=== PATIENT | male | born 1995 | race Caucasian/White ===

== ENCOUNTER 2018-03-23 09:46 | Observation (INO) ==
[2018-03-23] MEDS ORDERED: Nystatin 100,000 UNITS/GM Powder 15 GM Bottle TOPICAL ONE (10:25)
--- NOTE | 2018-03-23 11:29 | ED ---
HPI General Chief complaint: Headache Stated complaint: Flu Symptoms Time Seen by Provider: 03/23/18 10:23 Source: patient and EMS Mode of arrival: EMS Limitations: no limitations History of Present Illness HPI narrative: Patient is a 22-year-old male presenting to emerge from for evaluation of cold and flulike symptoms. Patient states it started Thursday night. He reports 2 episodes of nausea and vomiting last night as well as 2 episodes of diarrhea last night. He reports generalized body aches, a productive cough with green sputum, runny nose, a dull headache. Patient states he was discharged from [facility] on Thursday afternoon after presenting there for evaluation of ear pain. Patient denies any chest pain, shortness of breath, abdominal pain. Patient states that he is followed by Dr. Hubbard but has not been able to follow-up with them because he has not come out to his home to evaluate him. He reports a history of sleep apnea and hypothyroidism, he is not compliant with thyroid medication. Onset (ago): day(s) Related Data Home Medications Medication Instructions Recorded Confirmed No Known Home Medications 03/23/18 03/23/18 Previous Rx's Medication Instructions Recorded azithromycin See Label Instructions .ROUTE 03/23/18 .COMPLEX #6 tab Allergies Allergy/AdvReac Type Severity Reaction Status Date / Time guaifenesin Allergy Intermediate HIVES Unverified 02/24/17 18:41 QUANFANCINE Allergy Mild WELTS Uncoded 04/25/09 15:39 Review of Systems ROS: all other systems reviewed are negative [facility] Medical History Medical History Hypothyroidism (Chronic) Obesity (Chronic) Sleep apnea (Chronic) Social History Social History Substance History: No History of Abuse Second Hand Smoke Exposure: No Smoking Status: Unknown if ever smoked How Often Do You Have a Drink Containing Alcohol: Unable to Obtain Recent Travel in [facility] within the Last 8 Weeks: No Recent Out of Country Travel within the Last 8 Weeks: No Immunization History Tetanus Immunization: Unable to Assess Hx Influenza Vaccine This Season: Unable to Assess Exam Narrative Exam Narrative: GENERAL: Morbidly obese, alert male. Presenting in no acute distress. SKIN: Focused skin assessment warm/dry. Well demarcated areas of erythema under breasts bilaterally and under pannus. HEAD: Atraumatic. Normocephalic. EYES: Pupils equal and round. No scleral icterus. No injection or drainage. ENT: No nasal bleeding or discharge. Mucous membranes pink and moist. NECK: Trachea midline. No JVD. CARDIOVASCULAR: Regular rate and rhythm. No murmur appreciated. RESPIRATORY: No accessory muscle use. Clear to auscultation. Breath sounds equal bilaterally. GASTROINTESTINAL: Abdomen soft, non-tender, nondistended. Hepatic and splenic margins not palpable. MUSCULOSKELETAL: No obvious deformities. No clubbing. No cyanosis. No edema. NEUROLOGICAL: Awake and alert. No obvious cranial nerve deficits. Motor grossly within normal limits. Normal speech. PSYCHIATRIC: Appropriate mood and affect; insight and judgment normal. Course Initial Documented Vital Signs Temperature 98.1 F 03/23/18 10:27 Pulse Rate 94 H 03/23/18 10:27 Respiratory Rate 20 03/23/18 10:27 Blood Pressure 143/88 H 03/23/18 10:27 Pulse Oximetry 96 03/23/18 10:27 Last Documented Vital Signs Temperature 98.1 F 03/23/18 10:35 Pulse Rate 90 03/23/18 10:35 Respiratory Rate 20 03/23/18 10:35 Blood Pressure 132/80 03/23/18 10:35 Pulse Oximetry 95 03/23/18 10:35 Medical Decision Making [facility] Narrative Medical decision making narrative: Patient is a morbidly obese 22-year-old male presenting for evaluation of cold and flulike symptoms. Patient's vital signs are stable, he is well oxygenated on room air. Labs and imaging ordered and pending. Thyroid function is within normal limits despite patient being noncompliant with levothyroxine. CBC with white blood cell count 12.6 with left shift. Chemistry reviewed, no acute findings identified. Chest x-ray shows no pneumothorax, minimal parenchymal changes in the right lung base. Case management was consulted to transport patient back to his home. Patient will be started on azithromycin. Patient was encouraged to follow-up with Dr. Hubbard. Patient was further encouraged to maintain a heart healthy diet, he was encouraged to engage in physical activity as much as possible to promote weight loss. He was encouraged to return to emergency department for any new or worsening symptoms. Patient verbalized understanding of instructions. Patient stable for discharge Attempted to discharge patient. Patient has nowhere to go patient and his mother were evicted from their apartment. Case management was consulted, the process was started for a skilled facility however nothing is available at this time. Patient is a difficult placement due to his size. Patient would likely benefit from placement in a skilled facility. [facility] paged for admission. Medical Screen Exam Complete: Yes Emergency Medical Condition: Yes Differential Diagnosis Differential Diagnosis: Kristin vs metabolic abnormality vs influenza vs common cold vs pneumonia vs other Lab Data Result diagrams: 03/23/18 11:00 03/23/18 11:00 Lab Results 03/23/18 03/23/18 Range/Units 11:00 11:00 WBC 12.6 H (4.0-11.0) th/mm3 RBC 5.44 (4.50-5.90) mil/mm3 Hgb 14.4 (13.0-17.0) gm/dL Hct 45.2 (39.0-51.0) % MCV 83.1 (80.0-100.0) fL MCH 26.6 L (27.0-34.0) pg MCHC 31.9 L (32.0-36.0) % RDW 15.6 (11.6-17.2) % Plt Count 95 L (150-450) th/mm3 MPV 10.0 (7.0-11.0) fL Prelim Diff (Auto) Slide review pending Neut % (Auto) 77.9 H (16.0-70.0) % Lymph % (Auto) 15.0 (9.0-44.0) % [place] % (Auto) 4.7 (0.0-8.0) % Eos % (Auto) 2.0 (0.0-4.0) % Baso % (Auto) 0.4 (0.0-2.0) % Neut # (Auto) 9.8 H (1.8-7.7) th/mm3 Lymph # (Auto) 1.9 (1.0-4.8) th/mm3 [place] # (Auto) 0.6 (0.0-0.9) th/mm3 Eos # (Auto) 0.3 (0.0-0.4) th/mm3 Baso # (Auto) 0.1 (0.0-0.2) th/mm3 WBC Differential . Diff Scan Auto diff confirmed Differential Comment . Platelet Estimate Low L (Normal) Platelet Morphology Enlarged H (Normal) Sodium 139 (136-145) meq/L Potassium 4.3 (3.5-5.1) meq/L Chloride 102 (98-107) meq/L Carbon Dioxide 29.8 (21.0-32.0) meq/L Anion Gap 7 (5-15) meq/L BUN 5 L (7-18) mg/dL Creatinine 0.52 L (0.60-1.30) mg/dL Estimated GFR Greater than 89 (>89) mL/min Random Glucose 87 (74-106) mg/dL Calcium 8.3 L (8.5-10.1) mg/dL Total Bilirubin 1.1 H (0.2-1.0) mg/dL AST 33 (15-37) U/L ALT 52 (12-78) U/L Alkaline Phosphatase 62 (45-117) U/L Total Protein 8.3 H (6.4-8.2) g/dL Albumin 2.9 L (3.4-5.0) g/dL Lipase 39 L (73-393) U/L TSH 2.360 (0.358-3.740) uIU/mL Free T4 1.34 (0.76-1.46) ng/dL Imaging Data Radiologist's impression: Chest X-Ray 03/23/18 10:24 CONCLUSION: No pneumothorax. Elevation left hemidiaphragm. Discharge Plan Discharge Disposition Patient Disposition: 01 Discharge Home Discharge Condition Condition: Good Discharge Details Diagnosis: Pneumonia, Morbid obesity, Impaired mobility and ADLs Physicians Team ED Provider: Sameera Shaffer ED Midlevel Provider: Marisol Wiley Primary Care Provider: Arnaud Hubbard Rxs /Orders / Referrals /Forms Prescriptions: New azithromycin 250 mg tablet See Label Instructions .ROUTE .COMPLEX Qty: 6 RF: 0 No Action No Known Home Medications RF: 0 Referrals: Arnaud Hubbard MD [Primary Care Provider] - 3 Days Discharge Instructions Patient Printed Instructions: Acute Bronchitis (ED) Additional Instructions: Follow-up with Dr. Hubbard Take antibiotics as directed Return to emergency department for any new or worsening symptoms Discharge Interventions Interventions: ED Discharge Assessment Last Done: 03/23/18 13:45 Discharge Planning - Case Management Last Done: 03/23/18 16:11 Status ED Status: Admitted Patient
[2018-03-23 11:37] LABS: Baso # (Auto) 0.1 th/mm3 (0.0-0.2); Baso % (Auto) 0.4 % (0.0-2.0); Eos # (Auto) 0.3 th/mm3 (0.0-0.4); Hematocrit 45.2 % (39.0-51.0); Hemoglobin 14.4 gm/dL (13.0-17.0); Lymph # (Auto) 1.9 th/mm3 (1.0-4.8); Mean Corpuscular HGB Conc 31.9 % (32.0-36.0); Mean Corpuscular Hemoglobin 26.6 pg (27.0-34.0); Mean Corpuscular Volume 83.1 fL (80.0-100.0); Mono # (Auto) 0.6 th/mm3 (0.0-0.9); Mono % (Auto) 4.7 % (0.0-8.0); Neut # (Auto) 9.8 th/mm3 (1.8-7.7); Neut % (Auto) 77.9 % (16.0-70.0); Platelet Count 95 th/mm3 (150-450); Red Blood Count 5.44 mil/mm3 (4.50-5.90); Red Cell Distribution Width 15.6 % (11.6-17.2); White Blood Count 12.6 th/mm3 (4.0-11.0)
[2018-03-23 12:20] LABS: Alanine Aminotransferase 52 U/L (12-78); Albumin 2.9 g/dL (3.4-5.0); Anion Gap 7 meq/L (5-15); Aspartate Aminotransferase 33 U/L (15-37); Blood Urea Nitrogen 5 mg/dL (7-18); Calcium 8.3 mg/dL (8.5-10.1); Carbon Dioxide 29.8 meq/L (21.0-32.0); Chloride 102 meq/L (98-107); Glomerular Filtration Rate Greater Than 89 mL/min (>89); Glucose,Random 87 mg/dL (74-106); Lipase 39 U/L (73-393); Potassium 4.3 meq/L (3.5-5.1); Sodium 139 meq/L (136-145)
[2018-03-23 12:23] LABS: Alkaline Phosphatase 62 U/L (45-117); Free T4 (Free Thyroxine) 1.34 ng/dL (0.76-1.46); Total Protein 8.3 g/dL (6.4-8.2)
--- NOTE | 2018-03-23 13:28 | XR ---
EXAM DATE: 03/23/2018 11:36 AM EDT AGE/SEX: 22 years / Male INDICATIONS: Cough and congestion. CLINICAL DATA: This is the patient's initial encounter. Patient reports that signs and symptoms have been present for 1 week and indicates a pain score of 5/10. MEDICAL/SURGICAL HISTORY: None. None. COMPARISON: [facility], CHEST PA & LAT, 07/23/2012. . FINDINGS: There is no pneumothorax following bronchoscopy. There is mild elevation of the left hemidiaphragm. M inimal parental changes are present in right base. CONCLUSION: No pneumothorax. Elevation left hemidiaphragm. Electronically signed by: Collin Raya MD 03/23/2018 1:27 PM EDT
[2018-03-23] MEDS ORDERED: Azithromycin 250 MG Tablet PO ONE (17:30)
[2018-03-23] MEDS ORDERED: Acetaminophen 325 MG Tablet PO PRN (17:53)
[2018-03-23] MEDS ORDERED: Bisacodyl 10 MG Supp RECTAL PRN (17:53)
--- NOTE | 2018-03-23 18:11 | P.HP ---
History of Present Illness Primary Care Physician: Arnaud Hubbard MD Chief Complaint: placement issues History of Present Illness: Patient is a 22-year-old male presenting to emerge from for evaluation of cold and flulike symptoms. Patient states it started Thursday night. He reports 2 episodes of nausea and vomiting last night as well as 2 episodes of diarrhea last night. He reports generalized body aches, a productive cough with green sputum, runny nose, a dull headache. Patient states he was discharged from [facility] on Thursday afternoon after presenting there for evaluation of ear pain. Patient denies any chest pain, shortness of breath, abdominal pain. Patient states that he is followed by Dr. Hubbard but has not been able to follow- up with them because he has not come out to his home to evaluate him. He reports a history of sleep apnea and hypothyroidism, he is not compliant with thyroid medication. 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 - Medical History Medical History: Medical History (Last Reviewed 03/23/18 @ 18:02 by Marie Calvillo MD) Hypothyroidism Obesity Sleep apnea - Surgical History Surgical History: Surgical History (Last Updated 03/23/18 @ 18:02 by Marie Calvillo MD) Surgical screw in right hand (Acute) - Tobacco History Second Hand Smoke Exposure: No Tobacco Use In Past 30 Days: No Smoking Status: Unknown if ever smoked - Alcohol History How Often Do You Have a Drink Containing Alcohol: Unable to Obtain - Substance Use History Substance History: No History of Abuse - Travel History Recent Travel in the [place] Within the Last 8 Weeks: No Recent Travel Out of the Country Within the Last 8 Weeks: No - Immunization History Tetanus Immunization: Unable to Assess Hx Influenza Vaccine This Season: Unable to Assess Medications and Allergies Active Medications: Active Medications Acetaminophen (Tylenol) 650 mg PO Q4H PRN PRN Reason: Temp > 100.4 Al Hydroxide/Mg Hydroxide (Milk Of Magnesia Liq) 30 ml PO Q12H PRN PRN Reason: Mild Constipation Azithromycin (Zithromax) 250 mg PO DAILY BRAYAN Stop: 03/28/18 08:59 Bisacodyl (Dulcolax Supp) 10 mg RECTAL DAILY PRN PRN Reason: SEVERE CONSITIPATION Enoxaparin Sodium (Lovenox Inj) 40 mg SQ Q24H BRAYAN Lactulose (Lactulose Liq) 30 ml PO DAILY PRN PRN Reason: SEVERE CONSITIPATION Nystatin (Mycostatin Cream) 1 applicatio TOPICAL BID BRAYAN Ondansetron HCl (Zofran Inj) 4 mg IV.PUSH Q6H PRN PRN Reason: NAUSEA OR VOMITING Senna/Docusate Sodium (Katerina-Colace) 1 tab PO BID BRAYAN Sennosides (Senokot) 17.2 mg PO Q12H PRN PRN Reason: Moderate Constipation Sodium Chloride (Ns Flush) 2 ml IV.FLUSH PRN PRN PRN Reason: FLUSH AFTER USING IV ACCESS Allergies Allergy/AdvReac Type Severity Reaction Status Date / Time guaifenesin Allergy Intermediate HIVES Unverified 02/24/17 18:41 QUANFANCINE Allergy Mild WELTS Uncoded 04/25/09 15:39 Home Medications Medication Instructions Recorded Confirmed Type No Known Home Medications 03/23/18 03/23/18 History Exam Vital signs: Vital Signs 03/23/18 10:27 03/23/18 10:35 Temperature 98.1 F 98.1 F Pulse Rate 94 H 90 Respiratory Rate 20 20 Blood Pressure 143/88 H 132/80 Pulse Oximetry 96 95 Intake & Output 03/22/18 03/23/18 03/23/18 18:59 06:59 18:59 Weight 650 kg Narrative: GENERAL: 22-year-old male morbidly obese. SKIN: Warm and dry. Cutaneous candidiasis. HEAD: Atraumatic. Normocephalic. EYES: Pupils equal and round. No scleral icterus. No injection or drainage. ENT: No nasal bleeding or discharge. Mucous membranes pink and moist. NECK: Trachea midline. No JVD. CARDIOVASCULAR: Regular rate and rhythm. RESPIRATORY: No accessory muscle use. Clear to auscultation. Breath sounds equal bilaterally. GASTROINTESTINAL: Abdomen soft, morbidly obese non-tender, nondistended. Hepatic and splenic margins not palpable. MUSCULOSKELETAL: Extremities without clubbing, cyanosis, or edema. No obvious deformities. NEUROLOGICAL: Awake and alert. No obvious cranial nerve deficits. Motor grossly within normal limits. Normal speech. PSYCHIATRIC: Appropriate mood and affect; insight and judgment normal. Results - Labs CBC & Chem 7: 03/23/18 11:00 03/23/18 11:00 Labs: Laboratory Results - last 24 hr 03/23/18 03/23/18 11:00 11:00 WBC 12.6 H RBC 5.44 Hgb 14.4 Hct 45.2 MCV 83.1 MCH 26.6 L MCHC 31.9 L RDW 15.6 Plt Count 95 L MPV 10.0 Prelim Diff (Auto) Slide review pending Neut % (Auto) 77.9 H Lymph % (Auto) 15.0 [place] % (Auto) 4.7 Eos % (Auto) 2.0 Baso % (Auto) 0.4 Neut # (Auto) 9.8 H Lymph # (Auto) 1.9 [place] # (Auto) 0.6 Eos # (Auto) 0.3 Baso # (Auto) 0.1 WBC Differential . Diff Scan Auto diff confirmed Differential Comment . Platelet Estimate Low L Platelet Morphology Enlarged H Sodium 139 Potassium 4.3 Chloride 102 Carbon Dioxide 29.8 Anion Gap 7 BUN 5 L Creatinine 0.52 L Estimated GFR Greater than 89 Random Glucose 87 Calcium 8.3 L Total Bilirubin 1.1 H AST 33 ALT 52 Alkaline Phosphatase 62 Total Protein 8.3 H Albumin 2.9 L Lipase 39 L TSH 2.360 Free T4 1.34 - Imaging Impressions Chest X-Ray 03/23/18 10:24 CONCLUSION: No pneumothorax. Elevation left hemidiaphragm. Caprini VTE Risk Assessment Caprini VTE Risk Assessment: Moderate/High Risk (score >= 2) Caprini Risk Assessment Model: Point Value = 1 Point Value = 2 Point Value = 3 Point Value = 5 Age 41-60 Minor surgery BMI > 25 kg/m2 Swollen legs Varicose veins or History of unexplained or recurrent spontaneous Oral contraceptives or hormone replacement Sepsis (< 1 month) Serious lung disease, including pneumonia (< 1 month) Abnormal pulmonary function Acute myocardial infarction Congestive heart failure (< 1 month) History of inflammatory bowel disease Medical patient at bed rest Age 61-74 Arthroscopic surgery Major open surgery (> 45 min) Laparoscopic surgery (> 45 min) Malignancy Confined to bed (> 72 hours) Immobilizing plaster cast Central venous access Age >= 75 History of VTE Family history of VTE Factor V Leiden Prothrombin [id number] Lupus anticoagulant Anticardiolipin antibodies Elevated serum homocysteine Heparin-induced thrombocytopenia Other congenital or acquired thrombophilia Stroke (< 1 month) Elective arthroplasty Hip, pelvis, or leg fracture Acute spinal cord injury (< 1 month) Prophylaxis Regimen: Total Risk Factor Score Risk Level Prophylaxis Regimen 0-1 Low Early ambulation 2 Moderate Order ONE of the following: *Sequential Compression Device (SCD) *Heparin 5000 units SQ BID 3-4 Higher Order ONE of the following medications: *Heparin 5000 units SQ TID *Enoxaparin/Lovenox 40 mg SQ daily (WT < 150 kg, CrCl > 30 mL/min) *Enoxaparin/Lovenox 30 mg SQ daily (WT < 150 kg, CrCl > 10-29 mL/min) *Enoxaparin/Lovenox 30 mg SQ BID (WT < 150 kg, CrCl > 30 mL/min) AND/OR *Sequential Compression Device (SCD) 5 or more Highest Order ONE of the following medications: *Heparin 5000 units SQ TID (Preferred with Epidurals) *Enoxaparin/Lovenox 40 mg SQ daily (WT < 150 kg, CrCl > 30 mL/min) *Enoxaparin/Lovenox 30 mg SQ daily (WT < 150 kg, CrCl > 10-29 mL/min) *Enoxaparin/Lovenox 30 mg SQ BID (WT < 150 kg, CrCl > 30 mL/min) AND *Sequential Compression Device (SCD) Assessment and Plan - Plan 23-year-old male morbidly obese with placement issues. Discussed with case management says patient cannot be admitted to any long-term facility. For case management treatment and also per patient mother said he gave her will have a motel by Thursday. Morbid obesity. Bed bound. Patient with BMI of 194 and 650 kg Needs placement however per case management due to weight long-term facility will not take patient. Mother is a caregiver and the patient was living at home however has eviction and no place to stay. Per patient in case management mother will be able to have a motel by Thursday Dietary changes. To follow-up with dietitian as outpatient. To consider bariatric surgery, follow-up as outpatient Cutaneous candidiasis. Start nystatin Bronchitis start azithromycin p.o. Monitor oxygen. Patient says he used to have sleep apnea however does not have any more the CPAP. Restart home medications as appropriate DVT ppx lovenox Code Status: Full code Discussed Condition With: Patient, nurse
[2018-03-23] MEDS: Enoxaparin Inj 40 MG/0.4 ML Syringe SQ SCH (21:42)
[2018-03-23] MEDS: Senna/Docusate Sodium 8.6/50 MG Tablet PO SCH (21:43)
[2018-03-23 23:37] LABS: Bilirubin,Urine Negative (Negative); Clarity,Urine Clear (Clear); Color,Urine Yellow (Yellw/Straw); Glucose,Urine (UA) Negative (Negative); Leukocyte Esterase,Urine Negative (Negative); Mucus,Urine Few /lpf (Occasional); Nitrite,Urine Negative (Negative); Specific Gravity,Urine 1.019 (1.002-1.035); Squamous Epithelial Cell,Urine 1 /hpf (0-5)
[2018-03-24] MEDS: Nystatin 100,000 UNITS/GM Powder 15 GM Bottle TOPICAL SCH ×5 (01:44→22:24)
[2018-03-24] MEDS: Azithromycin 250 MG Tablet PO SCH (09:07)
[2018-03-24] MEDS: Senna/Docusate Sodium 8.6/50 MG Tablet PO SCH ×2 (09:07→22:19)
[2018-03-24 16:39] LABS: Baso # (Auto) 0.1 th/mm3 (0.0-0.2); Baso % (Auto) 0.7 % (0.0-2.0); Eos # (Auto) 0.3 th/mm3 (0.0-0.4); Hematocrit 42.2 % (39.0-51.0); Hemoglobin 13.9 gm/dL (13.0-17.0); Lymph # (Auto) 1.9 th/mm3 (1.0-4.8); Lymph % (Auto) 18.5 % (9.0-44.0); Mean Corpuscular Hemoglobin 26.9 pg (27.0-34.0); Mean Corpuscular Volume 81.6 fL (80.0-100.0); Mean Platelet Volume 9.8 fL (7.0-11.0); Mono # (Auto) 0.5 th/mm3 (0.0-0.9); Mono % (Auto) 5.2 % (0.0-8.0); Neut # (Auto) 7.5 th/mm3 (1.8-7.7); Neut % (Auto) 72.6 % (16.0-70.0); Platelet Count 82 th/mm3 (150-450); Red Blood Count 5.18 mil/mm3 (4.50-5.90); Red Cell Distribution Width 14.9 % (11.6-17.2); White Blood Count 10.3 th/mm3 (4.0-11.0)
[2018-03-24 17:02] LABS: Alanine Aminotransferase 47 U/L (12-78); Anion Gap 7 meq/L (5-15); Aspartate Aminotransferase 28 U/L (15-37); Blood Urea Nitrogen 5 mg/dL (7-18); Calcium 8.9 mg/dL (8.5-10.1); Carbon Dioxide 30.7 meq/L (21.0-32.0); Chloride 101 meq/L (98-107); Glomerular Filtration Rate Greater Than 89 mL/min (>89); Glucose,Random 91 mg/dL (74-106); Sodium 139 meq/L (136-145)
[2018-03-24 17:05] LABS: Alkaline Phosphatase 58 U/L (45-117); Total Protein 8.1 g/dL (6.4-8.2)
--- NOTE | 2018-03-24 17:17 | P.PN ---
Subjective Interval history: Patient is seen sitting up in bed. He is unclothed and mother is scrubbing his feet. Patient denies chest pain. Does complain of some shortness of breath and wheezing. Still has nasal congestion and is coughing up some phlegm. He does report that he feels better now that he has taken part of the Z-Sinan. No nausea or vomiting. No fever or chills. Physical Exam Vital signs: Vital Signs 03/23/18 20:00 03/23/18 23:32 03/24/18 04:00 Temperature 98.5 F 98.0 F 98.2 F Pulse Rate 100 H 94 H 111 H Respiratory Rate 20 20 Blood Pressure 143/63 H 113/73 133/93 H Pulse Oximetry 95 95 100 03/24/18 08:00 03/24/18 12:00 Temperature 98.1 F 98.7 F Pulse Rate 96 H 98 H Respiratory Rate 16 12 Blood Pressure 157/80 H 110/79 Pulse Oximetry 91 L 97 Intake & Output 03/23/18 03/24/18 03/24/18 18:59 06:59 18:59 Intake Total 480 / 480 Balance 480 / 480 Weight 650 kg 294.835 kg Intake: Oral 480 / 480 Other: # Voids 2 Date of Last Bowel Movement 03/24/18 Weight On Admission 294.835 kg Narrative: GENERAL: 22-year-old male morbidly obese. SKIN: Warm and dry. Cutaneous candidiasis. HEAD: Atraumatic. Normocephalic. NECK: Trachea midline. No JVD. CARDIOVASCULAR: Regular rate and rhythm. RESPIRATORY: No accessory muscle use. Clear to auscultation. Breath sounds equal bilaterally. GASTROINTESTINAL: Abdomen soft, morbidly obese non-tender, nondistended. MUSCULOSKELETAL: Extremities without clubbing, cyanosis, or edema. No obvious deformities. NEUROLOGICAL: Awake and alert. No obvious cranial nerve deficits. Motor grossly within normal limits. Normal speech. PSYCHIATRIC: Appropriate mood and affect; insight and judgment normal. Results - Labs CBC & Chem 7: 03/24/18 16:26 03/24/18 16:26 Laboratory Results - last 24 hr 03/23/18 03/24/18 03/24/18 23:16 16:26 16:26 WBC 10.3 RBC 5.18 Hgb 13.9 Hct 42.2 MCV 81.6 MCH 26.9 L MCHC 33.0 RDW 14.9 Plt Count 82 L MPV 9.8 Prelim Diff (Auto) Slide review pending Neut % (Auto) 72.6 H Lymph % (Auto) 18.5 [place] % (Auto) 5.2 Eos % (Auto) 3.0 Baso % (Auto) 0.7 Neut # (Auto) 7.5 Lymph # (Auto) 1.9 [place] # (Auto) 0.5 Eos # (Auto) 0.3 Baso # (Auto) 0.1 Differential Comment . Sodium 139 Potassium 4.0 Chloride 101 Carbon Dioxide 30.7 Anion Gap 7 BUN 5 L Creatinine 0.48 L Estimated GFR Greater than 89 Random Glucose 91 Calcium 8.9 Total Bilirubin 1.6 H AST 28 ALT 47 Alkaline Phosphatase 58 Total Protein 8.1 Albumin 3.0 L Urine Color Yellow Urine Clarity Clear Urine pH 7.0 Ur Specific [place] 1.019 Urine Protein Negative Urine Glucose (UA) Negative Urine Ketones Negative Urine Occult Blood Negative Urine Nitrate Negative Urine Bilirubin Negative Urine Urobilinogen 2.0 H Ur Leukocyte Esterase Negative Urine RBC Less than 1 Urine WBC 4 Ur Squamous Epith Cells 1 Urine Mucus Few H Micro UA Comment Culture not ind Ur Microscopic Review Not Reportable Urine Culture Comments Culture not ind Assessment and Plan - Plan 23-year-old male morbidly obese with placement issues. Discussed with case management says patient cannot be admitted to any [facility] facility. For case management treatment and also per patient mother said he gave her will have a motel by Thursday. Bronchitis start azithromycin p.o. Morbid obesity. Bed bound. Patient with BMI of 194 and 294 kg Needs placement however per case management due to weight [facility] facility will not take patient. Mother is a caregiver and the patient was living at home however has eviction and no place to stay. Per patient in case management mother will be able to have a motel by Thursday Dietary changes. To follow-up with dietitian as outpatient. To consider bariatric surgery, follow-up as outpatient Cutaneous candidiasis. Start nystatin Monitor oxygen. Patient says he used to have sleep apnea however does not have any more the CPAP. Restart home medications as appropriate DVT ppx lovenox
[2018-03-24 17:36] LABS: RBC Morphology Normal (Normal)
[2018-03-24] MEDS: Enoxaparin Inj 40 MG/0.4 ML Syringe SQ SCH (22:24)
[2018-03-25] MEDS: Senna/Docusate Sodium 8.6/50 MG Tablet PO SCH ×2 (09:04→23:01)
[2018-03-25] MEDS: Azithromycin 250 MG Tablet PO SCH (09:06)
[2018-03-25] MEDS: Nystatin 100,000 UNITS/GM Powder 15 GM Bottle TOPICAL SCH ×4 (10:04→23:00)
--- NOTE | 2018-03-25 17:06 | P.PN ---
Subjective Interval history: Patient is seen lying in bed. He tells me that he continues to feel better. No new complaints. No new shortness of breath or chest pain. No nausea vomiting or diarrhea. He noted to be somewhat verbally abusive to his mother who is at bedside. Physical Exam Vital signs: Vital Signs 03/24/18 20:12 03/24/18 21:52 03/25/18 03:27 Temperature 98.0 F Pulse Rate 75 85 Respiratory Rate 16 16 Blood Pressure 129/63 Pulse Oximetry 96 95 03/25/18 07:43 03/25/18 11:58 03/25/18 15:40 Temperature 98.5 F 98.8 F Pulse Rate 94 H 97 H 96 H Respiratory Rate 20 20 18 Blood Pressure 121/82 103/64 141/63 H Pulse Oximetry 90 L 93 L 95 Intake & Output 03/24/18 03/25/18 03/25/18 18:59 06:59 18:59 Intake Total 480 / 480 Balance 480 / 480 Intake: Oral 480 / 480 Other: # Voids 2 Date of Last Bowel Movement 03/24/18 03/24/18 03/24/18 # Bowel Movements 2 Narrative: GENERAL: 22-year-old male morbidly obese. SKIN: Warm and dry. Cutaneous candidiasis. HEAD: Atraumatic. Normocephalic. NECK: Trachea midline. No JVD. CARDIOVASCULAR: Regular rate and rhythm. RESPIRATORY: No accessory muscle use. Clear to auscultation. Breath sounds equal bilaterally. GASTROINTESTINAL: Abdomen soft, morbidly obese non-tender, nondistended. MUSCULOSKELETAL: Extremities without clubbing, cyanosis, or edema. No obvious deformities. NEUROLOGICAL: Awake and alert. No obvious cranial nerve deficits. Motor grossly within normal limits. Normal speech. PSYCHIATRIC: Appropriate mood and affect; insight and judgment normal. Results - Labs CBC & Chem 7: 03/24/18 16:26 03/24/18 16:26 Laboratory Results - last 24 hr 03/24/18 03/24/18 16:26 16:26 WBC Differential . Diff Scan Auto diff confirmed Platelet Estimate Low L Platelet Morphology Enlarged H RBC Morphology Normal Total Bilirubin 1.6 H Alkaline Phosphatase 58 Total Protein 8.1 Assessment and Plan - Plan 23-year-old male morbidly obese with placement issues. Discussed with case management says patient cannot be admitted to any long term facility. For case management treatment and also per patient mother said he gave her will have a motel by Thursday. Bronchitis -start azithromycin p.o. Morbid obesity. Bed bound. Patient with BMI of 194 and 294 kg -Needs placement however per case management due to weight long term facility will not take patient. Mother is a caregiver and the patient was living at home however has eviction and no place to stay. Per patient in case management mother will be able to have a motel by Thursday Dietary changes. -To follow-up with dietitian as outpatient. -To consider bariatric surgery, follow-up as outpatient Cutaneous candidiasis. -Start nystatin Monitor oxygen. -Patient says he used to have sleep apnea however does not have any more the CPAP. -o2 at night and when sleeping Restart home medications as appropriate DVT ppx lovenox
[2018-03-25] MEDS: Enoxaparin Inj 40 MG/0.4 ML Syringe SQ SCH (21:59)
[2018-03-26] MEDS: Nystatin 100,000 UNITS/GM Powder 15 GM Bottle TOPICAL SCH ×4 (08:47→20:26)
[2018-03-26] MEDS: Azithromycin 250 MG Tablet PO SCH (08:47)
[2018-03-26] MEDS: Senna/Docusate Sodium 8.6/50 MG Tablet PO SCH ×2 (08:48→23:07)
--- NOTE | 2018-03-26 16:17 | P.PN ---
Subjective Interval history: Patient is lying in bed. No new complaints of shortness of breath or congestion. No chest pain. No nausea vomiting or diarrhea. Physical Exam Vital signs: Vital Signs 03/25/18 19:15 03/25/18 20:00 03/25/18 23:31 Temperature 97.9 F 98.3 F Pulse Rate 104 H 86 Respiratory Rate 18 18 Blood Pressure 126/58 L 121/62 Pulse Oximetry 96 94 L 95 03/26/18 04:00 03/26/18 07:56 03/26/18 08:00 Temperature 98.1 F 98.3 F Pulse Rate 91 H 78 Respiratory Rate 20 20 Blood Pressure 127/65 121/67 Pulse Oximetry 93 L 96 90 L 03/26/18 12:00 Temperature 98.0 F Pulse Rate 95 H Respiratory Rate 12 Blood Pressure 107/81 Pulse Oximetry 93 L Intake & Output 03/25/18 03/26/18 03/26/18 18:59 06:59 18:59 Intake Total 480 / 480 Balance 480 / 480 Intake: Oral 480 / 480 Other: # Voids 1 Date of Last Bowel Movement 03/25/18 03/24/18 # Bowel Movements 1 Narrative: GENERAL: 22-year-old male morbidly obese. SKIN: Warm and dry. Cutaneous candidiasis. HEAD: Atraumatic. Normocephalic. NECK: Trachea midline. No JVD. CARDIOVASCULAR: Regular rate and rhythm. RESPIRATORY: No accessory muscle use. Clear to auscultation. Breath sounds equal bilaterally. GASTROINTESTINAL: Abdomen soft, morbidly obese non-tender, nondistended. MUSCULOSKELETAL: Extremities without clubbing, cyanosis, or edema. No obvious deformities. NEUROLOGICAL: Awake and alert. No obvious cranial nerve deficits. Motor grossly within normal limits. Normal speech. PSYCHIATRIC: Appropriate mood and affect; insight and judgment normal. Results - Labs CBC & Chem 7: 03/24/18 16:26 03/24/18 16:26 Assessment and Plan - Plan 23-year-old male morbidly obese with placement issues. Discussed with case management says patient cannot be admitted to any halfway facility. For case management treatment and also per patient mother said he gave her will have a motel by Thursday. Bronchitis -Continue azithromycin p.o. Morbid obesity. Bed bound. Patient with BMI of 194 and 294 kg -Needs placement however per case management due to weight halfway facility will not take patient. Mother is a caregiver and the patient was living at home however has eviction and no place to stay. Per patient in case management mother will be able to have a motel by Thursday Dietary changes. -To follow-up with dietitian as outpatient. -To consider bariatric surgery, follow-up as outpatient Cutaneous candidiasis. -Start nystatin Monitor oxygen. -Patient says he used to have sleep apnea however does not have any more the CPAP. -o2 at night and when sleeping Restart home medications as appropriate DVT ppx lovenox
[2018-03-26] MEDS: Enoxaparin Inj 40 MG/0.4 ML Syringe SQ SCH (20:26)
[2018-03-27 09:02] LABS: ABG Base Excess 3.1 mmol/L (-2-2); ABG PCO2 53 mmHg (38-42); ABG PO2 76 mmHg (61-120)
[2018-03-27] MEDS: Nystatin 100,000 UNITS/GM Powder 15 GM Bottle TOPICAL SCH ×4 (09:43→21:20)
[2018-03-27] MEDS: Senna/Docusate Sodium 8.6/50 MG Tablet PO SCH ×2 (09:44→21:20)
[2018-03-27] MEDS: Azithromycin 250 MG Tablet PO SCH (09:44)
--- NOTE | 2018-03-27 13:49 | P.PN ---
Subjective Interval history: Patient is seen lying in bed. He is somewhat drowsy. Mother and additional person also sleeping in room. Denies any new complications. Physical Exam Vital signs: Vital Signs 03/26/18 16:00 03/27/18 00:12 03/27/18 07:58 Temperature 98.5 F 98.3 F Pulse Rate 95 H 90 Respiratory Rate 16 18 16 Blood Pressure 119/68 122/93 H Pulse Oximetry 93 L 98 03/27/18 10:20 Temperature 98.2 F Pulse Rate 68 Respiratory Rate 20 Blood Pressure 132/80 Pulse Oximetry 98 Intake & Output 03/26/18 03/27/18 03/27/18 18:59 06:59 18:59 Intake Total 600 / 600 100 / 100 Output Total 600 / 600 Balance 600 / 600 -500 / -500 Intake: Oral 600 / 600 100 / 100 Output: Urine 600 / 600 Other: # Voids 2 Date of Last Bowel Movement 03/24/18 Narrative: GENERAL: 22-year-old male morbidly obese. SKIN: Warm and dry. Extensive cutaneous candidiasis. HEAD: Atraumatic. Normocephalic. NECK: Trachea midline. No JVD. CARDIOVASCULAR: Regular rate and rhythm. RESPIRATORY: No accessory muscle use. Clear to auscultation. Breath sounds equal bilaterally. GASTROINTESTINAL: Abdomen soft, morbidly obese non-tender, nondistended. MUSCULOSKELETAL: Extremities without clubbing, cyanosis, or edema. No obvious deformities. NEUROLOGICAL: Awake and alert. No obvious cranial nerve deficits. Motor grossly within normal limits. Normal speech. PSYCHIATRIC: Appropriate mood and affect; insight and judgment normal. Results - Labs CBC & Chem 7: 03/24/18 16:26 03/24/18 16:26 Laboratory Results - last 24 hr 03/27/18 08:46 Puncture Site Right radial Patient Temperature 98.6 O2 Saturation 93 ABG pH 7.35 L ABG pCO2 53 H* ABG pO2 76 ABG HCO3 28 H ABG O2 Content 19.9 ABG Base Excess 3.1 H ABG Methemoglobin 0.5 Theo Test Present Hemoglobin 15.1 Carboxyhemoglobin 1.1 Inspired O2 21 Critical Value Yes Assessment and Plan - Plan 23-year-old male morbidly obese with placement issues. Discussed with case management says patient cannot be admitted to any longterm facility. For case management treatment and also per patient mother said he gave her will have a motel by [place]. Bronchitis -Continue azithromycin p.o. Morbid obesity. Bed bound. Patient with BMI of 194 and 294 kg -Needs placement however per case management due to weight longterm facility will not take patient. Mother is a caregiver and the patient was living at home however has eviction and no place to stay. Dietary changes. -To follow-up with dietitian as outpatient. -To consider bariatric surgery, follow-up as outpatient Cutaneous candidiasis. -Start nystatin Monitor oxygen. -Patient says he used to have sleep apnea however does not have any more the CPAP. -o2 at night and when sleeping Restart home medications as appropriate DVT ppx lovenox
[2018-03-27] MEDS: Enoxaparin Inj 40 MG/0.4 ML Syringe SQ SCH (21:18)
[2018-03-28] MEDS: Nystatin 100,000 UNITS/GM Powder 15 GM Bottle TOPICAL SCH ×4 (08:32→20:43)
[2018-03-28] MEDS: Senna/Docusate Sodium 8.6/50 MG Tablet PO SCH ×2 (08:32→20:39)
--- NOTE | 2018-03-28 11:00 | P.PN ---
Subjective Interval history: In bed says he is having cough. Add Mucinex. He otherwise denies having any chest pain or shortness of breath. No nausea or vomiting no diarrhea or constipation. Awaiting for case management discharge plan. Physical Exam Vital signs: Vital Signs 03/27/18 16:12 03/27/18 20:00 03/28/18 00:00 Temperature 97.4 F L 97.7 F 97.7 F Pulse Rate 104 H 107 H 105 H Respiratory Rate 16 20 20 Blood Pressure 122/82 140/72 120/79 Pulse Oximetry 93 L 94 L 94 L 03/28/18 08:00 Temperature 97.7 F Pulse Rate 110 H Respiratory Rate 17 Blood Pressure 169/111 H Pulse Oximetry 90 L Intake & Output 03/27/18 03/28/18 03/28/18 18:59 06:59 18:59 Intake Total 360 / 360 Balance 360 / 360 Weight 268.1 kg Intake: Oral 360 / 360 Other: # Incontinent Voids 2 Date of Last Bowel Movement 03/27/18 03/27/18 03/27/18 # Bowel Movements 1 # Incontinent Bowel Movements 2 Narrative: GENERAL: 22-year-old male morbidly obese. SKIN: Warm and dry. Extensive cutaneous candidiasis. HEAD: Atraumatic. Normocephalic. NECK: Trachea midline. No JVD. CARDIOVASCULAR: Regular rate and rhythm. RESPIRATORY: No accessory muscle use. Clear to auscultation. Breath sounds equal bilaterally. GASTROINTESTINAL: Abdomen soft, morbidly obese non-tender, nondistended. MUSCULOSKELETAL: Extremities without clubbing, cyanosis, or edema. No obvious deformities. NEUROLOGICAL: Awake and alert. No obvious cranial nerve deficits. Motor grossly within normal limits. Normal speech. PSYCHIATRIC: Appropriate mood and affect; insight and judgment normal. Results - Labs CBC & Chem 7: 03/24/18 16:26 03/24/18 16:26 Assessment and Plan - Plan 22-year-old male morbidly obese with placement issues. Discussed with case management says patient cannot be admitted to any longterm facility. For case management treatment and also per patient mother said he gave her will have a motel by Thursday. Morbid obesity. Bed bound. Patient with BMI of 194 and 650 kg Needs placement however per case management due to weight longterm facility will not take patient. Mother is a caregiver and the patient was living at home however has eviction and no place to stay. Per patient in case management mother will be able to have a motel by Thursday Dietary changes. To follow-up with dietitian as outpatient. To consider bariatric surgery, follow-up as outpatient Cutaneous candidiasis. Start nystatin Bronchitis start azithromycin p.o. Add IS. mucinex. Monitor oxygen. Patient says he used to have sleep apnea however does not have any more the CPAP. Restart home medications as appropriate DVT ppx lovenox CM is following for DC plan
[2018-03-28] MEDS ORDERED: guaiFENesin 600 MG ER Tablet PO SCH (14:40)
[2018-03-28] MEDS: Enoxaparin Inj 40 MG/0.4 ML Syringe SQ SCH (20:38)
[2018-03-28] MEDS: Benzonatate 100 MG Capsule PO PRN (20:39)
[2018-03-29] MEDS: Senna/Docusate Sodium 8.6/50 MG Tablet PO SCH ×2 (09:13→22:37)
[2018-03-29] MEDS: Nystatin 100,000 UNITS/GM Powder 15 GM Bottle TOPICAL SCH ×4 (09:55→22:36)
--- NOTE | 2018-03-29 10:32 | P.PN ---
Subjective Interval history: Says he used to have CPAP at night. However says he does not have the CPAP anymore. She feels short of breath and is noted that his oxygen saturation dropping when he is sleeping. No nausea vomiting or diarrhea or constipation. Denies fever or chills. Cough improved with medications. Note patient was noted ordering food also mother brings food in. We will consult the dietitian Physical Exam Vital signs: Vital Signs 03/28/18 12:00 03/28/18 16:00 03/28/18 16:21 Temperature 97.8 F 97.3 F L Pulse Rate 111 H 95 H Respiratory Rate 17 21 Blood Pressure 141/57 H 104/78 Pulse Oximetry 95 91 L 95 03/28/18 20:00 03/29/18 00:00 Temperature 97.8 F 97 F L Pulse Rate 109 H 83 Respiratory Rate 22 21 Blood Pressure 132/62 125/80 Pulse Oximetry 96 95 Intake & Output 03/28/18 03/29/18 03/29/18 18:59 06:59 18:59 Intake Total 800 / 800 240 / 240 Balance 800 / 800 240 / 240 Weight 269.5 kg Intake: Oral 800 / 800 240 / 240 Other: # Voids 2 1 Date of Last Bowel Movement 03/27/18 03/29/18 03/29/18 # Bowel Movements 1 Narrative: GENERAL: 22-year-old male morbidly obese. SKIN: Warm and dry. Extensive cutaneous candidiasis. HEAD: Atraumatic. Normocephalic. NECK: Trachea midline. No JVD. CARDIOVASCULAR: Regular rate and rhythm. RESPIRATORY: No accessory muscle use. Clear to auscultation. Breath sounds equal bilaterally. GASTROINTESTINAL: Abdomen soft, morbidly obese non-tender, nondistended. MUSCULOSKELETAL: Extremities without clubbing, cyanosis, or edema. No obvious deformities. NEUROLOGICAL: Awake and alert. No obvious cranial nerve deficits. Motor grossly within normal limits. Normal speech. PSYCHIATRIC: Appropriate mood and affect; insight and judgment normal. Results - Labs CBC & Chem 7: 03/24/18 16:26 03/24/18 16:26 Assessment and Plan - Plan 22-year-old male morbidly obese with placement issues. Discussed with case management says patient cannot be admitted to any prison facility. For case management treatment and also per patient mother said he gave her will have a motel by Thursday. Morbid obesity. Bed bound. Patient with BMI of 194 and 650 kg Needs placement however per case management due to weight prison facility will not take patient. Mother is a caregiver and the patient was living at home however has eviction and no place to stay. Per patient in case management mother will be able to have a motel by Thursday Dietary changes. Consult parts administrator. To consider bariatric surgery, follow-up as outpatient. Cutaneous candidiasis. Start nystatin Bronchitis start azithromycin p.o. Add IS. mucinex. Monitor oxygen. Patient says he used to have sleep apnea however does not have any more the CPAP. Restart home medications as appropriate Sleep apnea start biapap at night . Consider consulting pulm DVT ppx lovenox CM is following for DC plan
[2018-03-29] MEDS: Enoxaparin Inj 40 MG/0.4 ML Syringe SQ SCH (22:36)
--- NOTE | 2018-03-30 08:50 | P.PN ---
Subjective Interval history: In bed No n/v/d/c No fever or chills Denies chest pain or sob No more cough Did use cpap overnight patient stanley to follow as OP with pulm for C pap Patient eating junk food from outside. Mother has a place , plan to DC today Physical Exam Vital signs: Vital Signs 03/29/18 11:37 03/29/18 12:28 03/29/18 14:40 Temperature 97.4 F L 97.9 F Pulse Rate 103 H 119 H Respiratory Rate 16 16 Blood Pressure 136/58 L 136/88 Pulse Oximetry 98 98 96 03/29/18 20:00 03/30/18 04:54 Temperature 97.8 F Pulse Rate 110 H Respiratory Rate 20 Blood Pressure 135/74 Pulse Oximetry 94 L 95 Intake & Output 03/29/18 03/30/18 03/30/18 18:59 06:59 18:59 Other: Date of Last Bowel Movement 03/29/18 # Bowel Movements 1 Narrative: GENERAL: 22-year-old male morbidly obese. SKIN: Warm and dry. Extensive cutaneous candidiasis. HEAD: Atraumatic. Normocephalic. NECK: Trachea midline. No JVD. CARDIOVASCULAR: Regular rate and rhythm. RESPIRATORY: No accessory muscle use. Clear to auscultation. Breath sounds equal bilaterally. GASTROINTESTINAL: Abdomen soft, morbidly obese non-tender, nondistended. MUSCULOSKELETAL: Extremities without clubbing, cyanosis, or edema. No obvious deformities. NEUROLOGICAL: Awake and alert. No obvious cranial nerve deficits. Motor grossly within normal limits. Normal speech. PSYCHIATRIC: Appropriate mood and affect; insight and judgment normal. Results - Labs CBC & Chem 7: 03/24/18 16:26 03/24/18 16:26 Assessment and Plan - Plan 22-year-old male morbidly obese with placement issues. Discussed with case management says patient cannot be admitted to any longterm facility. For case management treatment and also per patient mother said he gave her will have a motel by Thursday. Morbid obesity. Bed bound. Patient with BMI of 194 and 650 kg Needs placement however per case management due to weight longterm facility will not take patient. Mother is a caregiver and the patient was living at home however has eviction and no place to stay. Per patient in case management mother will be able to have a motel by Thursday Dietary changes. Consult filament shaper. To consider bariatric surgery, follow-up as outpatient. Cutaneous candidiasis. Start nystatin Bronchitis start azithromycin p.o. Add IS. mucinex. Monitor oxygen. Patient says he used to have sleep apnea however does not have any more the CPAP. Restart home medications as appropriate Sleep apnea start cpap at night . Consider consulting pulm Patient to follow up as OP with pulm for Cpap DVT ppx lovenox CM is following for DC plan.
[2018-03-30 08:53] VITALS: RESP 16
[2018-03-30] MEDS: Nystatin 100,000 UNITS/GM Powder 15 GM Bottle TOPICAL SCH ×2 (10:26→13:16)
[2018-03-30] MEDS: Senna/Docusate Sodium 8.6/50 MG Tablet PO SCH (10:27)
--- NOTE | 2018-03-30 10:59 | P.DS ---
Date of admission: 03/23/18 17:33 Primary care physician: Arnaud Hubbard MD Brief History from admission: Patient is a 22-year-old male presenting to emerge from for evaluation of cold and flulike symptoms. Patient states it started Thursday night. He reports 2 episodes of nausea and vomiting last night as well as 2 episodes of diarrhea last night. He reports generalized body aches, a productive cough with green sputum, runny nose, a dull headache. Patient states he was discharged from [facility] on Thursday afternoon after presenting there for evaluation of ear pain. Patient denies any chest pain, shortness of breath, abdominal pain. Patient states that he is followed by Dr. Hubbard but has not been able to follow- up with them because he has not come out to his home to evaluate him. He reports a history of sleep apnea and hypothyroidism, he is not compliant with thyroid medication. Family hx reviewed , no health problems in his family DS: Diagnosis - Discharge Diagnosis (1) Pneumonia Status: Acute (2) Morbid obesity Status: Acute (3) Impaired mobility and ADLs Status: Acute (4) Surgical screw in right hand Status: Acute DS: Medications - Discharge Medications Prescriptions: azithromycin See Label Instructions .ROUTE .COMPLEX #6 tab benzonatate [Tessalon Perles] 100 mg PO Q8H PRN #10 cap PRN Reason: cough DS: Summary Hospital Course: 22-year-old male morbidly obese with placement issues. Discussed with case management says patient cannot be admitted to any assisted facility. For case management treatment and also per patient mother said he gave her will have a motel by Thursday. Morbid obesity. Bed bound. Patient with BMI of 194 and 650 kg Needs placement however per case management due to weight assisted facility will not take patient. Mother is a caregiver and the patient was living at home however has eviction and no place to stay. Per patient in case management mother will be able to have a motel Dietary changes. Consult aircraft motor mechanic. To consider bariatric surgery, follow-up as outpatient. Cutaneous candidiasis. Start nystatin Bronchitis start azithromycin p.o. Add IS. mucinex. Monitor oxygen. Patient says he used to have sleep apnea however does not have any more the CPAP. Restart home medications as appropriate Sleep apnea start cpap at night . Patient to follow up as OP with pulm for Cpap DC home ( motel ) in stable conditin to follow upas OP with PCP and consultants. - Time Spent with Patient Total time spent providing and/or coordinating discharge services: Greater than 30 minutes - Quality: VTE Deep Vein Thrombosis/Pulmonary Embolism Present on Admission: No Exam Vital signs: Vital Signs 03/29/18 11:37 03/29/18 12:28 03/29/18 14:40 Temperature 97.4 F L 97.9 F Pulse Rate 103 H 119 H Respiratory Rate 16 16 Blood Pressure 136/58 L 136/88 Pulse Oximetry 98 98 96 03/29/18 20:00 03/30/18 04:54 03/30/18 08:00 Temperature 97.8 F 97.8 F Pulse Rate 110 H 60 Respiratory Rate 20 16 Blood Pressure 135/74 131/62 Pulse Oximetry 94 L 95 95 03/30/18 10:24 Temperature Pulse Rate Respiratory Rate Blood Pressure Pulse Oximetry 90 L Intake & Output 03/29/18 03/30/18 03/30/18 18:59 06:59 18:59 Other: Date of Last Bowel Movement 03/29/18 # Bowel Movements 1 Narrative: GENERAL: 22-year-old male morbidly obese. SKIN: Warm and dry. Extensive cutaneous candidiasis. CARDIOVASCULAR: Regular rate and rhythm. RESPIRATORY: No accessory muscle use. Clear to auscultation. Breath sounds equal bilaterally. GASTROINTESTINAL: Abdomen soft, morbidly obese non-tender, nondistended. MUSCULOSKELETAL: Extremities without clubbing, cyanosis, or edema. No obvious deformities. NEUROLOGICAL: Awake and alert. No obvious cranial nerve deficits. Motor grossly within normal limits. Normal speech. PSYCHIATRIC: Appropriate mood and affect; insight and judgment normal. Results Procedures completed during hospitalization: No procedures - Impressions ITS Impressions Chest X-Ray 03/23/18 10:24 CONCLUSION: No pneumothorax. Elevation left hemidiaphragm. Discharge Plan - Discharge Disposition Patient Disposition: Discharge Home - Discharge Condition Condition: Good - Discharge Order Discharge Orders: Discharge Order (Routine); Ordered 03/30/18 Ordered By: Marie Calvillo - Physicians Team Primary Care Provider: Arnaud Hubbard Attending Provider: Marie Calvillo Other Providers: Vishal Akers MD
[2018-03-30] MEDS ORDERED: Azithromycin 250 MG Tablet PO SCH (11:00)
--- NOTE | 2018-03-30 11:08 | MB ---
cc: Vishal Akers MD DATE: 03/30/2018 REASON FOR CONSULTATION: Sleep apnea. HISTORY OF PRESENT ILLNESS: The patient is a 22-year-old morbidly obese with a past medical history of obstructive sleep apnea, hypothyroidism, previous hospitalization for pneumonia and bronchitis. He presented to [facility] ED on 03/23/2018, with a cold and flu-like symptoms. In addition, he had generalized body aches, productive cough with green phlegm. He denies any chest pain, shortness of breath, or abdominal pain. A chest x-ray on admission showed elevation of the left hemidiaphragm. He states that he had a [facility]; [facility] coverage [facility]. He is a nonsmoker. The patient reports snoring at night in addition to apneic episodes. He wakes up with headaches and gasping for air. Also, he reports frequent naps during the day. The patient currently weighed 650 pounds and denies any significant weight changes in the last 1 year. He is interested for evaluation of bariatric surgery; however, he states that he could not afford it. ABG on room air from 03/27/2018, showed a pH of 7.35, CO2 of 53, PO2 of 76, bicarbonate of 28, and saturation of 93%. He is currently on room air oxygen. The patient is afebrile and his influenza type A and B antigen are negative from 03/23/2018. PAST MEDICAL HISTORY: Significant for hypothyroidism, morbid obesity, obstructive sleep apnea. PAST SURGICAL HISTORY: Previous surgery on his left upper extremity. ALLERGIES: GUAIFENESIN. SOCIAL HISTORY: Nonsmoker, nondrinker. FAMILY HISTORY: Noncontributory to present illness. CURRENT MEDICATIONS: Include DuoNeb, Lovenox, Zofran p.r.n. REVIEW OF SYSTEMS: As per HPI. The rest of review of systems unremarkable. PHYSICAL EXAMINATION: GENERAL: A 22-year-old male, morbidly obese, lying in bed, in no acute respiratory distress. VITAL SIGNS: Temperature 97.8, pulse of 60, respiratory rate of 16, blood pressure 131/62, saturation 95% on room air. HEENT: Atraumatic, normocephalic. Pupils are equal and reactive to light and accommodation. Extraocular muscles intact. Conjunctivae pink. Anicteric sclerae. Oral mucosa within normal. NECK: Supple. No JVD, no adenopathy, no thyromegaly. Trachea midline. CARDIOVASCULAR: Regular rate and rhythm. Normal S1, S2. No murmurs, rubs, or gallops noted. PULMONARY: Bilateral equal air entry. No rales or wheezing. ABDOMEN: Soft, obese, nontender, positive bowel sounds. EXTREMITIES: No cyanosis, clubbing, or edema. NEUROLOGIC: No focal sensory deficit. LABORATORY DATA: WBC 10.3, hemoglobin 13.9, hematocrit 42, platelet count of 82. Sodium 139, potassium 4, chloride 101, CO2 of 30, BUN 5, creatinine 0.48, glucose of 91. ABG: pH 7.35, CO2 of 53, PO2 of 76, bicarbonate 28, saturations of 93%. IMPRESSION: 1. [id number]-joszbkr hypercapnic respiratory insufficiency. 2. Obstructive sleep apnea. 3. Morbid obesity. 4. Tracheobronchitis. 5. Thrombocytopenia. 6. Hypothyroidism. RECOMMENDATIONS: 1. Oxygen p.r.n. to maintain sats above 92%. 2. Continue with bronchodilators in the form of DuoNeb. 3. Noninvasive positive pressure ventilation p.r.n. and nocturnally at bedtime. 4. Place on empiric antibiotics in the form of azithromycin and monitor for signs of infection, which include fever and WBC. His nasal washing for influenza is negative on 03/23/2018. We will obtain a sputum culture with Gram stain. 5. We will need a sleep study as an outpatient to assess the severity of his obstructive sleep apnea. 6. Consult case management to obtain a CPAP machine. In addition, the patient will benefit from evaluation for bariatric surgery. 7. Repeat chest x-ray. His last x-ray from 03/23 showed elevation of left hemidiaphragm. 8. Gastrointestinal and deep venous thrombosis prophylaxis per primary team. 9. Further recommendations will be based on hospital course. Thank you for this consultation and allowing us to participate in this patient's care. MD BRANDON Pritchard/crystal , 10:14 AM , 10:24 AM
[2018-03-30] MEDS: Benzonatate 100 MG Capsule PO PRN (11:48)
[2018-03-30 17:00] VITALS: BP 130/84; PULSE 103; TEMP 97.9; O2SAT 96
== END 2018-03-30 17:44 | disposition home or self-care (01) ==
LOC: NEDA 09:46 → NEPD 09:46 → NEDA 19:50 → NEPGCP 20:00 → N07 03-27 19:28
PROVIDERS: ADMIT Hospitalist; ATTEND Hospitalist